=== PATIENT | male | born 1970 | race Caucasian/White ===

== ENCOUNTER 2017-01-25 11:05 | Emergency (ER) | payer OTHER ==
[~2017-01-25] VITALS: Ht 167.6 cm; Wt 84.8 kg
[2017-01-25 11:07] VITALS: BP 130/80
== END 2017-01-25 11:36 | disposition home or self-care (01) ==
LOC: ED 11:05
DX: K08.89 Other specified disorders of teeth and supporting structures (principal)

== ENCOUNTER 2017-03-30 18:50 | Emergency (ER) | payer OTHER ==
[~2017-03-30] VITALS: Ht 167.6 cm; Wt 85.8 kg
[2017-03-30 20:40] VITALS: BP 128/75
== END 2017-03-30 20:40 | disposition home or self-care (01) ==
LOC: ED 18:50
DX: M54.42 Lumbago with sciatica, left side (principal); Z52.4 Kidney donor
CPT/HCPCS: J2270; Q0162

== ENCOUNTER 2018-03-19 23:07 | Emergency (ER) | payer OTHER ==
[~2018-03-19] VITALS: Ht 170.2 cm; Wt 87.1 kg
[2018-03-19 23:39] VITALS: Ht 170.2 cm; Wt 87.1 kg
[2018-03-20 04:58] VITALS: BP 117/78
== END 2018-03-20 04:58 | disposition home or self-care (01) ==
LOC: ED 23:07
DX: S90.851A Superficial foreign body, right foot, initial encounter (principal); S90.31XA Contusion of right foot, initial encounter; L03.115 Cellulitis of right lower limb; W45.0XXA Nail entering through skin, initial encounter; Y93.89 Activity, other specified; Y92.89 Other specified places as the place of occurrence of the external cause; Y99.8 Other external cause status
CPT/HCPCS: 90715

== ENCOUNTER 2018-03-20 17:51 | Emergency (ER) | payer OTHER ==
[~2018-03-20] VITALS: Ht 170.2 cm; Wt 88.0 kg
[2018-03-20 21:11] VITALS: BP 126/66
== END 2018-03-20 21:11 | disposition home or self-care (01) ==
LOC: ED 17:51
DX: S90.851A Superficial foreign body, right foot, initial encounter (principal); W22.8XXA Striking against or struck by other objects, initial encounter; Y93.89 Activity, other specified; Y92.89 Other specified places as the place of occurrence of the external cause; Y99.8 Other external cause status
CPT/HCPCS: J2001

== ENCOUNTER 2019-01-18 20:41 | Emergency (ER) | payer OTHER ==
[~2019-01-18] VITALS: Ht 170.2 cm; Wt 90.7 kg
[2019-01-18 21:11] VITALS: Ht 170.2 cm; Wt 90.7 kg
[2019-01-18 21:52] LABS: BASOPHIL % 0.2 % (0-2); PLATELET COUNT 224 x10^3mcL (130-400); RED CELL DISTRIBUTION WIDTH 12.6 % (11.5-14.5)
[2019-01-18 21:59] LABS: CALCIUM 8.9 mg/dL (8.5-10.1); CARBON DIOXIDE 29.1 mmol/L (21-32); CHLORIDE SERUM 101 mmol/L (98-107); CREATININE SERUM 1.2 mg/dL (0.7-1.3); GFR1 > 60 mL/min; GLUCOSE SERUM 146 mg/dL (74-106); POTASSIUM SERUM 4.1 mmol/L (3.5-5.1); SODIUM SERUM 137 mmol/L (136-145)
[2019-01-18 22:03] LABS: ALBUMIN 3.8 g/dL (3.4-5.0); ALKALINE PHOSPHATASE 117 U/L (46-116); ALT/SGPT 60 U/L (16-63); AST/SGOT 22 U/L (15-37); BILIRUBIN TOTAL 0.7 mg/dL (0.20-1.00); LIPASE 195 IU/L (73-393); TOTAL PROTEIN, SERUM 7.5 g/dL (6.4-8.2)
[2019-01-19 00:53] VITALS: BP 121/69
== END 2019-01-19 00:53 | disposition home or self-care (01) ==
LOC: ED 20:41
PROVIDERS: Emergency Medicine
DX: K52.9 Noninfective gastroenteritis and colitis, unspecified (principal); Z98.890 Other specified postprocedural states
CPT/HCPCS: J1885; J2405; J7030

== ENCOUNTER 2019-06-06 18:21 | Emergency (ER) | payer OTHER ==
[~2019-06-06] VITALS: Ht 170.2 cm; Wt 88.9 kg
[2019-06-06 18:25] VITALS: Ht 170.2 cm; Wt 88.9 kg
[2019-06-06 20:42] VITALS: BP 119/89
== END 2019-06-06 20:40 | disposition home or self-care (01) ==
LOC: ED 18:21
DX: S61.214A Laceration without foreign body of right ring finger without damage to nail, initial encounter (principal); W25.XXXA Contact with sharp glass, initial encounter; Y93.89 Activity, other specified; Y92.89 Other specified places as the place of occurrence of the external cause; Y99.8 Other external cause status
CPT/HCPCS: 90715; J2001; Q0092

== ENCOUNTER 2019-06-18 21:22 | Emergency (ER) | payer OTHER ==
[~2019-06-18] VITALS: Ht 170.2 cm; Wt 90.3 kg
[2019-06-18 21:29] VITALS: BP 112/78; Ht 170.2 cm; Wt 90.3 kg
== END 2019-06-19 00:08 | disposition home or self-care (01) ==
LOC: ED 21:22
DX: S61.214D Laceration without foreign body of right ring finger without damage to nail, subsequent encounter (principal); X58.XXXD Exposure to other specified factors, subsequent encounter

== ENCOUNTER 2020-06-17 15:23 | Emergency (ER) | payer OTHER ==
[~2020-06-17] VITALS: Ht 167.6 cm; Wt 87.1 kg
[2020-06-17 15:43] VITALS: Ht 167.6 cm; Wt 87.1 kg
[2020-06-17 18:25] VITALS: BP 148/71
== END 2020-06-17 18:25 | disposition home or self-care (01) ==
LOC: ED 15:23
DX: T17.208A Unspecified foreign body in pharynx causing other injury, initial encounter (principal); W45.8XXA Other foreign body or object entering through skin, initial encounter; Y93.89 Activity, other specified; Y92.89 Other specified places as the place of occurrence of the external cause; Y99.8 Other external cause status